=== PATIENT | male | born 1985 | race Two or more races ===

== ENCOUNTER 2024-03-07 09:23 | Emergency (ER) | payer BC ==
[~2024-03-07] VITALS: Ht 175.3 cm; Wt 73.9 kg
[2024-03-07 09:41] VITALS: BP 161/96; TEMP 98.5
[2024-03-07] MEDS ORDERED: CLIN300C12 PO (10:09)
[2024-03-07] MEDS ORDERED: DIPH25CA83 PO (10:09)
[2024-03-07] MEDS ORDERED: PRED50TA PO (10:09)
[2024-03-07 10:15] VITALS: O2SAT 100
== END 2024-03-07 10:09 | disposition home or self-care (01) ==
LOC: ER 09:27
DX: L50.9 Urticaria, unspecified (principal); T50.995A Adverse effect of other drugs, medicaments and biological substances, initial encounter; Z88.2 Allergy status to sulfonamides; Z88.8 Allergy status to other drugs, medicaments and biological substances; Z87.828 Personal history of other (healed) physical injury and trauma; Y92.89 Other specified places as the place of occurrence of the external cause